=== PATIENT | male | born 1930 | race Caucasian/White ===

== ENCOUNTER 2019-03-12 07:32 | Inpatient (IN) | payer MEDICARE, OTHER ==
[2019-03-12] MEDS ORDERED: Furosemide 20 MG/2 ML VIAL ONE (08:43)
[2019-03-12 08:56] LABS: #Basophils 0.1 thou/uL (0.0-0.2); #Eosinphils 0.1 thou/uL (0.0-0.7); #Lymphocytes 0.7 thou/uL (1.20-3.40); #Monocytes 0.4 thou/uL (0.11-0.59); #Neutrophils 5.6 thou/uL (1.40-6.50); %Basophils 0.8 % (0.0-1.0); %Eosinophils 0.9 % (0.0-10.0); %Lymphocytes 10.9 % (21.0-51.0); %Monocytes 5.2 % (0.0-10.0); %Neutrophils 82.2 % (42.0-75.0); Hemoglobin 9.4 g/dL (14.0-18.0); Mean Corpuscular HGB CONC 31.8 g/dL (32.0-36.0); Mean Corpuscular Hemoglobin 26.2 pg (27.0-31.0); Mean Corpuscular Volume 82.3 fL (78.0-98.0); Mean Platelet Volume 10.4 fL (7.4-10.4); Platelet Count 284 thou/uL (130-400); RBC Distribution Width 15.2 % (11.5-14.5); White Blood Cell (WBC) Count 6.8 thou/uL (4.8-10.8)
[2019-03-12 09:13] LABS: ALT (SGPT) Less than 7 U/L (8-55); AST (SGOT) 11 U/L (5-34); Albumin 2.3 g/dL (3.4-4.8); Alkaline Phosphatase 90 U/L (40-110); Anion Gap 8 mmol/L (10-20); BUN (Urea Nitrogen) 9 mg/dL (8.4-25.7); Bilirubin, Total 0.4 mg/dL (0.2-1.2); CK (CPK) 46 U/L (30-200); Calc. Creatinine Clearance 0 mL/min (70-130); Calcium 8.3 mg/dL (7.8-10.44); Carbon Dioxide 33 mmol/L (23-31); Chloride 101 mmol/L (98-107); Estimated GFR-MDRD Greater than 90; Globulin 2.6 g/dL (2.4-3.5); Glucose 157 mg/dL (83-110); Protein, Total 4.9 g/dL (5.8-8.1); Sodium 139 mmol/L (136-145)
[2019-03-12 09:18] LABS: Potassium 2.7 mmol/L (3.5-5.1)
[2019-03-12] MEDS ORDERED: Potassium Chloride 20 MEQ TAB ONE (09:22)
--- NOTE | 2019-03-12 09:30 | RAD ---
CHEST 1 VIEW: Date: 03/12/19 HISTORY: Dyspnea. COMPARISON: 06/05/07. FINDINGS: There are bilateral layering pleural effusions. No pneumothorax. Moderate vascular calcifications. Cardiac silhouette is not enlarged. There appear to be surgical clips projecting over the expected lo cation of the GE junction. IMPRESSION: 1. Moderate layering pleural effusions with bibasilar atelectasis. 2. No definite evidence for pneumonia. Follow-up 2 views of chest recommended. POS: [facility]
[2019-03-12] MEDS ORDERED: hydrALAZINE 20 MG/ML VIAL ONE (10:08)
[2019-03-12 10:32] LABS: Bilirubin Negative (Negative); Blood, Urine 1+ (Negative); Calcium Oxalate Crystals Rare HPF (None Seen); Clarity Turbid (Clear); Glucose, Urine (Dipstick) Normal (Negative); Leukocyte 500 Leu/uL (Negative); Nitrite 2+ (Negative); Protein, Urine (Dipstick) Negative (Neg-Trace); Squamous Epithelial None Seen HPF (0-3); Urobilinogen Normal mg/dL (Less than 2); WBC/HPF 21-50 HPF (0-3)
[2019-03-12 10:34] LABS: Bacteria/HPF 2+ HPF (None Seen)
[2019-03-12] MEDS ORDERED: cefTRIAXone\\ROCEPHIN 2 GM in Sodium Chloride 0.9% 100 ML IVPB SCH (11:30)
[2019-03-12 13:17] LABS: Troponin I Less than 0.010 ng/mL (< 0.028)
[2019-03-12] MEDS ORDERED: Acetaminophen 325 MG TAB PO PRN (14:14)
[2019-03-12] MEDS ORDERED: Ondansetron PF 4 MG/2 ML Vial IVP PRN (14:14)
[2019-03-12] MEDS ORDERED: Guaifenesin DM 100-10/5 ML UDCUP PO PRN (14:14)
[2019-03-12] MEDS ORDERED: Calcium Carbonate 500 MG ChewTAB PO PRN (14:14)
[2019-03-12] MEDS ORDERED: Senokot S 8.6-50 MG TAB PO PRN (14:14)
[2019-03-12] MEDS ORDERED: Bisacodyl 10 MG SUPP PR PRN (14:14)
[2019-03-12] MEDS ORDERED: HYDROcodone/Acetaminophen 5/325 mg Tablet PO PRN (14:14)
--- NOTE | 2019-03-12 14:55 | HP ---
PRIMARY CARE PHYSICIAN: Julien Irvin MD REASON FOR ADMISSION: Anasarca, hypokalemia, failure to thrive, severe protein malnutrition, sacral decubitus. HISTORY OF PRESENTING ILLNESS: The patient was brought to emergency room as he was developing edema all over. This has been ongoing for the last 2 weeks. The patient lives alone, but his son comes and checks on him every day. He used to sleep in a recliner for nearly 2 years or so. The son got him an hospital bed and has been sleeping on it for last 2 weeks. He had severe edema in both lower extremities, which got resolved with the patient was placed in hospital bed. He also has developed sacral decubitus due to sitting on his recliner. They have 2 areas of ulcerations in the sacral area, one is healing, the other one is yet to heal. The patient has been bedbound after he fell in December, but was able to assist in transfers and mobilized himself to bathroom and back, but from last 2 weeks, he is deconditioned very badly and has been bedbound now. He apparently had Home Health for 1 week, and he has been off it for the last 2 weeks now. The family did not like their services. Son usually gives him a glass of milk, juice, a protein drink along with something from [employer] for the morning. In the evenings, the patient has apple juice, a banana, but does not eat much of solid food or meat. No complaints of chest pain or palpitation. No complaints of fever. He has been incontinent of urine after having had radiation done for his prostate cancer. No fever. PAST MEDICAL AND SURGICAL HISTORY: Hypertension, history of prostate cancer with 43 radiation treatments, peptic ulcer disease with likely rupture with surgery x2, urinary incontinence, right lower extremity multiple surgeries for fractures. CURRENT MEDICATIONS: Metoprolol extended release 25 mg daily, Lupron p.r.n. for his prostate cancer. ALLERGIES: ALLERGIC TO PENICILLIN. PERSONAL HISTORY: Quit chewing tobacco more than 20 years ago. He has not been drinking for the last 3 months now. Does not abuse drugs. FAMILY HISTORY: The patient is an 88-year-old and he is not oriented. Cannot obtain accurate family history. REVIEW OF SYSTEMS: Cannot be obtained as the patient is not oriented. CODE STATUS: Do not attempt to resuscitate. This was discussed with Mr. Sampson Victoria, the patient's son and power of assistant county attorney. PHYSICAL EXAMINATION: GENERAL: The patient is an 88-year-old male, who is currently not in any acute distress. VITAL SIGNS: Blood pressure 164/94, pulse 80 per minute, respiratory rate 18 per minute, temperature 98 degrees Fahrenheit, saturating 98% on room air. NECK: Supple. No elevated JVD. HEENT: Eyes; extraocular muscles intact. Pupils reacting to light. Oral cavity, mucous membranes are moist. No exudates or congestion. CARDIOVASCULAR: S1, S2 heard. Regular rhythm. RESPIRATORY: Air entry 1+ bilateral. Scattered rhonchi plus. No wheezes. ABDOMEN: Soft. Bowel sounds heard. No tenderness, rigidity, or guarding. The patient has edema over the torso, scrotum, and upper thighs. EXTREMITIES: 1+ peripheral edema. No calf tenderness. VASCULAR: Peripheral pulses 1+ bilateral, no ischemic ulcerations or gangrene. CENTRAL NERVOUS SYSTEM: No gross focal deficits noted. The patient is not fully oriented, but responds to verbal questions. PSYCHIATRIC: No obvious hallucinations or delusions. LABORATORY DATA: White count of 6.8, H and H of 9 and 29, platelet count is 284 , MCV is 82 with 82% neutrophils. Potassium 2.7, serum bicarb 33, BUN 9, creatinine 0.6, serum glucose 157, magnesium is 2. Liver enzymes within normal limits. Troponin x2 negative. BNP is 239. Albumin is 2.3, total protein is 4.9, globulin is 2.6. UA shows signs of UTI. IMAGING STUDIES: Chest x-ray done shows bilateral pleural effusions. No acute infiltrate as such. EKG done shows sinus rhythm at 76 beats per minute. CLINICAL IMPRESSION AND PLAN: The patient will be admitted to medical floor for severe deconditioning, failure to thrive, urinary tract infection, anasarca, severe protein malnutrition, poor oral intake. He has gotten 40 mg IV Lasix in the ER. We will place him on oral Lasix. He will also be on Levaquin for UTI. We will obtain Wound Care consultation for the decubitus, Dietary consultation as well, PT/OT evaluations and Case Management consultation. We will also obtain echo with 2D Doppler for LV function, stool studies in view of diarrhea which is 3 episodes. Son says the patient is essentially incontinent, and by the time, he reaches bathroom, stool will be on the floor. We will also continue his Lopressor 25 mg twice daily. We will obtain iron studies. Keep both his upper extremities, especially elbow and forearm over 2 pillows to reduce edema. Case Management consultation for placement likely to a swing bed. The son would eventually like to take him home, if he is able to assist him with transfers and take a few steps. They prefer ultimately going home from swing bed, if possible. Job ID: [id number] MTDD
[2019-03-12 16:43] VITALS: BMI 21.8
[2019-03-12] MEDS: Ferrous Sulfate 325 MG TAB PO SCH (21:04)
[2019-03-12] MEDS: Metoprolol Tartrate 25 MG TAB PO SCH (21:04)
[2019-03-12] MEDS: Famotidine 20 MG TAB PO SCH (21:04)
[2019-03-13 05:35] LABS: #Eosinphils 0.1 thou/uL (0.0-0.7); #Monocytes 0.5 thou/uL (0.11-0.59); #Neutrophils 4.3 thou/uL (1.40-6.50); %Basophils 0.2 % (0.0-1.0); %Eosinophils 1.4 % (0.0-10.0); %Lymphocytes 16.7 % (21.0-51.0); %Neutrophils 72.8 % (42.0-75.0); Mean Corpuscular HGB CONC 30.9 g/dL (32.0-36.0); Mean Corpuscular Hemoglobin 25.9 pg (27.0-31.0); Mean Corpuscular Volume 83.7 fL (78.0-98.0); Mean Platelet Volume 10.2 fL (7.4-10.4); Platelet Count 309 thou/uL (130-400); RBC Distribution Width 15.6 % (11.5-14.5); Red Blood Cell (RBC) Count 3.85 mill/uL (4.70-6.10); White Blood Cell (WBC) Count 5.9 thou/uL (4.8-10.8)
[2019-03-13 05:36] LABS: Anion Gap 10 mmol/L (10-20); BUN (Urea Nitrogen) 11 mg/dL (8.4-25.7); Calc. Creatinine Clearance 85 mL/min (70-130); Calcium 8.4 mg/dL (7.8-10.44); Carbon Dioxide 33 mmol/L (23-31); Chloride 99 mmol/L (98-107); Estimated GFR-MDRD Greater than 90; Glucose 134 mg/dL (83-110); Potassium 3.1 mmol/L (3.5-5.1); Sodium 139 mmol/L (136-145)
[2019-03-13] MEDS ORDERED: FLU VACC TS2019-20(65YR UP)/PF 180 MCG/0.5 ML SYRINGE IM ONE (09:00)
[2019-03-13] MEDS ORDERED: Furosemide 20 MG TAB PO SCH (09:00)
[2019-03-13] MEDS ORDERED: Prevnar 13-Val Conj/PF 0.5 ML SYRINGE IM ONE (09:00)
[2019-03-13] MEDS: Famotidine 20 MG TAB PO SCH ×2 (09:08→20:50)
[2019-03-13] MEDS: Enoxaparin Sodium 40 MG/0.4 ML SYRINGE SC SCH (09:09)
[2019-03-13] MEDS: Metoprolol Tartrate 25 MG TAB PO SCH ×2 (09:09→20:50)
[2019-03-13] MEDS: Ferrous Sulfate 325 MG TAB PO SCH ×2 (09:09→20:50)
--- NOTE | 2019-03-13 12:30 | PDOC.HOSPP ---
- Subjective Encounter Date: 03/13/19 Encounter Time: 09:00 Subjective: awake, watching tv and eating breakfast, responds well to verbal stimuli - Objective Vital Signs & Weight: Vital Signs (12 hours) Temp Pulse Resp BP Pulse Ox 03/13/19 08:00 96 03/13/19 04:00 98.3 F 73 20 161/71 H 96 03/13/19 00:41 97.8 F 89 20 161/73 H 97 Weight Weight 160 lb 14.999 oz I&O: 03/12/19 03/13/19 03/14/19 06:59 06:59 06:59 Intake Total 400 300 Output Total 200 Balance 200 300 Result Diagrams: 03/13/19 05:04 03/13/19 05:04 Hospitalist ROS - Medication Medications: Active Medications Generic Name Dose Route Start Last Admin Trade Name Freq PRN Reason Stop Dose Admin Enoxaparin Sodium 40 mg 03/13/19 09:00 03/13/19 09:09 Lovenox SC 40 mg 0900 ALEXIS Administration Famotidine 20 mg 03/12/19 21:00 03/13/19 09:08 Pepcid PO 20 mg BID ALEXIS Administration Ferrous Sulfate 325 mg 03/12/19 21:00 03/13/19 09:09 Feosol PO 325 mg BID ALEXIS Administration Levofloxacin 500 mg 03/13/19 06:00 03/13/19 05:27 Levaquin PO 500 mg 0600 ALEXIS Administration Metoprolol Tartrate 25 mg 03/12/19 21:00 03/13/19 09:09 Lopressor PO 25 mg BID ALEXIS Administration - Exam General Appearance: awake alert Eye: PERRL, anicteric sclera ENT: no oropharyngeal lesions, moist mucosa Neck: supple, no JVD Heart: RRR, no murmur Respiratory: no wheezes, no rales Gastrointestinal: soft, non-tender, non-distended, normal bowel sounds Extremities - other findings: dependent edema over elbows, post thighs/lower back Neurological: cranial nerve grossly intact, no focal deficits Hosp A/P (1) FTT (failure to thrive) in adult Status: Acute (2) Anasarca Code(s): R60.1 - GENERALIZED EDEMA Status: Acute (3) Severe protein-calorie malnutrition Code(s): E43 - UNSPECIFIED SEVERE PROTEIN-CALORIE MALNUTRITION Status: Acute (4) Physical deconditioning Code(s): R53.81 - OTHER MALAISE Status: Acute (5) Hypertension Code(s): I10 - ESSENTIAL (PRIMARY) HYPERTENSION Status: Chronic Qualifiers: Hypertension type: essential hypertension Qualified Code(s): I10 - Essential (primary) hypertension (6) PUD (peptic ulcer disease) Code(s): K27.9 - PEPTIC ULC, SITE UNSP, UNSP AC OR CHR, W/O HEMOR OR PERF Status: Chronic - Plan dietary consultation, ensure 1 can tid, encourage po intake discussed with case mgmt regarding swing bed placement PT to mobilize as tolerated Needs his elbows to be elevated above 2 pillows, its weeping from edema freq position changes to prevent worsoning of sacral decub likely stage 2 and also to reduce edema from torso lasix po daily, urine is high colored already hemostable
[2019-03-13] MEDS ORDERED: diphenhydrAMINE 50 MG/ML VIAL IVP SCH (20:30)
[2019-03-13] MEDS ORDERED: Lorazepam 2 MG/ML VIAL SLOW IVP SCH (21:30)
[2019-03-14 07:41] LABS: ALT (SGPT) 9 U/L (8-55); AST (SGOT) 12 U/L (5-34); Albumin 2.7 g/dL (3.4-4.8); Alkaline Phosphatase 106 U/L (40-110); Anion Gap 11 mmol/L (10-20); BUN (Urea Nitrogen) 8 mg/dL (8.4-25.7); Bilirubin, Total 0.4 mg/dL (0.2-1.2); Calc. Creatinine Clearance 93 mL/min (70-130); Calcium 8.5 mg/dL (7.8-10.44); Carbon Dioxide 36 mmol/L (23-31); Chloride 95 mmol/L (98-107); Estimated GFR-MDRD Greater than 90; Globulin 2.7 g/dL (2.4-3.5); Glucose 122 mg/dL (83-110); Protein, Total 5.4 g/dL (5.8-8.1); Sodium 139 mmol/L (136-145)
[2019-03-14 07:45] LABS: Potassium 2.8 mmol/L (3.5-5.1)
[2019-03-14] MEDS: Famotidine 20 MG TAB PO SCH ×2 (08:53→20:21)
[2019-03-14] MEDS: Metoprolol Tartrate 25 MG TAB PO SCH ×2 (08:53→20:22)
[2019-03-14] MEDS: Ferrous Sulfate 325 MG TAB PO SCH ×2 (08:54→20:22)
[2019-03-14] MEDS ORDERED: Furosemide 40 MG TAB PO SCH (09:00)
[2019-03-14] MEDS: Enoxaparin Sodium 40 MG/0.4 ML SYRINGE SC SCH (09:02)
--- NOTE | 2019-03-14 13:36 | PDOC.HOSPP ---
- Subjective Encounter Date: 03/14/19 Encounter Time: 08:00 Subjective: awakens easily to touch, not in distress - Objective Vital Signs & Weight: Vital Signs (12 hours) Temp Pulse Resp BP Pulse Ox 03/14/19 11:00 97.9 F 76 22 H 162/70 H 98 03/14/19 08:00 98.4 F 117 H 18 182/65 H 95 Weight Admit Weight 160 lb Weight 160 lb 14.999 oz I&O: 03/13/19 03/14/19 03/15/19 06:59 06:59 06:59 Intake Total 400 640 Output Total 200 Balance 200 640 Result Diagrams: 03/13/19 05:04 03/14/19 07:17 Hospitalist ROS - Medication Medications: Active Medications Generic Name Dose Route Start Last Admin Trade Name Freq PRN Reason Stop Dose Admin Enoxaparin Sodium 40 mg 03/13/19 09:00 03/14/19 09:02 Lovenox SC 40 mg 0900 ALEXIS Administration Famotidine 20 mg 03/12/19 21:00 03/14/19 08:53 Pepcid PO 20 mg BID ALEXIS Administration Ferrous Sulfate 325 mg 03/12/19 21:00 03/14/19 08:54 Feosol PO 325 mg BID ALEXIS Administration Furosemide 40 mg 03/14/19 09:00 03/14/19 08:54 Lasix PO 40 mg DAILY ALEXIS Administration Levofloxacin 500 mg 03/13/19 06:00 03/14/19 04:36 Levaquin PO Not Given 0600 ALEXIS Metoprolol Tartrate 25 mg 03/12/19 21:00 03/14/19 08:53 Lopressor PO 25 mg BID ALEXIS Administration Potassium Chloride 40 meq 03/14/19 08:30 03/14/19 08:51 Klor-Con PO 03/15/19 08:31 40 meq Q6H ALEXIS Administration - Exam Eye: PERRL, anicteric sclera ENT: no oropharyngeal lesions, dry oral mucosa Neck: supple, no JVD Heart: RRR, no murmur Respiratory: no wheezes, no rales Gastrointestinal: soft, non-tender, non-distended, normal bowel sounds Gastrointestinal - other findings: lower back area edema+ Extremities - other findings: elbow edema is receding Neurological: cranial nerve grossly intact, no focal deficits Hosp A/P (1) FTT (failure to thrive) in adult Status: Acute (2) Anasarca Code(s): R60.1 - GENERALIZED EDEMA Status: Acute (3) Severe protein-calorie malnutrition Code(s): E43 - UNSPECIFIED SEVERE PROTEIN-CALORIE MALNUTRITION Status: Acute (4) Physical deconditioning Code(s): R53.81 - OTHER MALAISE Status: Acute (5) Hypertension Code(s): I10 - ESSENTIAL (PRIMARY) HYPERTENSION Status: Chronic Qualifiers: Hypertension type: essential hypertension Qualified Code(s): I10 - Essential (primary) hypertension (6) PUD (peptic ulcer disease) Code(s): K27.9 - PEPTIC ULC, SITE UNSP, UNSP AC OR CHR, W/O HEMOR OR PERF Status: Chronic - Plan elbow and LE edema are receding got a dose of benadryl and ativan last night for agitation ensure 1 can tid, encourage po intake will need swing bed placement PT to mobilize as tolerated Continue elevating elbows over 2 pillows, chantel hose to LE to prevent edema from coming back. freq position changes to prevent worsoning of sacral decub likely stage 2 and also to reduce edema from torso lasix po daily, replace K+. hemostable Donot combine sedatives and benadryl, may give low dose xanax 0.5mg HS prn.
[2019-03-14] MEDS ORDERED: Haloperidol Lactate 5 MG/ML VIAL IM PRN (18:15)
[2019-03-15 05:38] LABS: Anion Gap 11 mmol/L (10-20); BUN (Urea Nitrogen) 8 mg/dL (8.4-25.7); Calc. Creatinine Clearance 85 mL/min (70-130); Calcium 8.2 mg/dL (7.8-10.44); Carbon Dioxide 33 mmol/L (23-31); Chloride 98 mmol/L (98-107); Estimated GFR-MDRD Greater than 90; Glucose 107 mg/dL (83-110); Potassium 3.4 mmol/L (3.5-5.1); Sodium 139 mmol/L (136-145)
[2019-03-15 08:11] VITALS: BP 169/78; TEMP 97.8
--- NOTE | 2019-03-15 19:06 | DIS ---
DATE OF ADMISSION: 03/12/2019 DATE OF DISCHARGE: 03/15/2019 DISCHARGE DISPOSITION: Home. PRIMARY DISCHARGE DIAGNOSES: Anasarca with dependent edema due to poor functional status, severe physical deconditioning and bedbound, severe protein-calorie malnutrition, failure to thrive, hypertension, history of peptic ulcer disease. PROCEDURES DONE DURING HOSPITALIZATION: Echo with 2D Doppler showed EF of 50% to 55%, [id number] tricuspid regurgitation. Chest x-ray done on the day of admission showed no acute infiltrate and had bilateral pleural effusions. Urine culture grew Citrobacter freundii sensitive to quinolones. Blood cultures x2, no growth. Stool for C diff, Campylobacter, and Shiga toxins were negative. H and H of 10 and 32, platelet count 309, MCV 83 with 72% neutrophils. BUN 8, creatinine 0.6, albumin is 2.3, total protein 4.9. DISCHARGE MEDICATIONS: 1. Levaquin 500 mg p.o. daily for another 4 days. 2. Lasix 40 mg daily. 3. K-Dur 20 mEq p.o. on alternate days. 4. Toprol-XL 25 mg p.o. daily. ALLERGIES: ALLERGIC TO PENICILLIN. DISCHARGE PLAN: The patient to follow up with Dr. Julien Irvin in 1 week. BRIEF COURSE DURING HOSPITALIZATION: The patient initially got admitted on the after his son brought him to the emergency room for edema all over. This edema was in both lower extremities and around the elbow area. He has also had edema of the torso on the posterior aspect. In essence, the patient had severe dependent edema with very low albumin and failure to thrive. He also was incidentally found to have had urinary tract infection and was treated for the same. He was gently diuresed during his stay. The patient had elevation of his lower extremities and elbows to reduce edema. The patient was to go to swing bed, but son decided to take him home and arrange for visiting angels. The patient did not like to go to the [facility] in any case. He has remained hemodynamically stable and will be shortly discharged home. Please note, I have seen and examined the patient on the day of discharge. Job ID: [id number] MTDD
== END 2019-03-15 08:58 | disposition home or self-care (01) | DRG 640 ==
LOC: ERS 07:32 → T4-B 14:40
PROVIDERS: ADMIT Internal Medicine; ATTEND Internal Medicine
DX: R62.7 Adult failure to thrive (principal); E43 Unspecified severe protein-calorie malnutrition; N39.0 Urinary tract infection, site not specified; E87.6 Hypokalemia; R60.1 Generalized edema; R53.81 Other malaise; C61 Malignant neoplasm of prostate; I10 Essential (primary) hypertension; Z66 Do not resuscitate; K27.9 Peptic ulcer, site unspecified, unspecified as acute or chronic, without hemorrhage or perforation; Z79.899 Other long term (current) drug therapy; Z88.0 Allergy status to penicillin; Z87.891 Personal history of nicotine dependence; Z68.21 Body mass index [BMI] 21.0-21.9, adult; L89.152 Pressure ulcer of sacral region, stage 2
CPT/HCPCS: 36415; 71045; 80048; 80053; 81003; 81015; 82550; 83735; 83880; 84484; 85025; 87040; 87045; 87046; 87077; 87086; 87186; 87324; 87427; 87449; 93005; 93306; 96365; 96375; J0360; J0696; J1200; J1650; J1940; J2060; J3490

== ENCOUNTER 2019-04-18 06:51 | Inpatient (IN) | payer MEDICARE, OTHER ==
--- NOTE | 2019-04-18 07:59 | CT ---
CT BRAIN NONCONTRAST: DATE: 04/18/2019 HISTORY: 88-year-old male with altered mental status: Increasing confusion. Multiple falls resulting in scalp lacerations. Head trauma. FINDINGS: There is no evidence of acute intra-axial or extra-axial hemorrhage. There is no midline shift or any other mass effect. There is no extra-axial fluid collection. There is no evidence of obstructive hydrocephalus. Calvarium is intact. There is diffuse brain parenchymal volume loss. There are low att enuation areas in the white matter. These are nonspecific, but in a patient of this age, they are probably chronic ischemic white matter changes due to microvascular atherosclerosis. IMPRESSION: 1) No acute intracranial findings. 2) involutional changes and chronic ischemic white matter changes.
--- NOTE | 2019-04-18 08:11 | RAD ---
Radiograph pelvis one view: DATE: 04/18/2019 HISTORY: 88-year-old male status post acute pelvic trauma from fall. COMPARISON: None available FINDINGS: No grossly displaced fracture is identified. The pelvic ring is intact. The sensitivity for the detec tion of acute nondisplaced and mildly displaced fractures is decreased because of the osteopenia and overlying bowel gas, as well as the fact that the hips are slightly flexed. If symptoms do not im prove in the next several days, consider noncontrast MRI of the pelvis. IMPRESSION: No fracture identified.
--- NOTE | 2019-04-18 08:13 | RAD ---
Chest AP view INDICATION: Fall with chest pain COMPARISON: March 12, 2019 FINDINGS: Lungs:Chronic lung changes are stable Cardiac silhouette:Mild cardiomegaly is present. There are vascular consultation involving the aortic arch Pulmonary vasculature:Normal Pleural spaces:No pleural effusion or pneumothorax is demonstrated. Upper abdomen:No abnormality seen. Osseous structures: No acute osseous abnormality. Additional findings:None. IMPRESSION: No acute cardiopulmonary abnormality.
[2019-04-18 08:19] LABS: ALT (SGPT) 19 U/L (8-55); AST (SGOT) 25 U/L (5-34); Alkaline Phosphatase 114 U/L (40-110); Anion Gap 11 mmol/L (10-20); BUN (Urea Nitrogen) 14 mg/dL (8.4-25.7); Bilirubin, Total 0.5 mg/dL (0.2-1.2); CK (CPK) 305 U/L (30-200); Calc. Creatinine Clearance 0 mL/min (70-130); Calcium 8.4 mg/dL (7.8-10.44); Carbon Dioxide 28 mmol/L (23-31); Chloride 101 mmol/L (98-107); Estimated GFR-MDRD Greater than 90; Globulin 2.5 g/dL (2.4-3.5); Glucose 166 mg/dL (83-110); Potassium 3.4 mmol/L (3.5-5.1); Protein, Total 5.5 g/dL (5.8-8.1); Sodium 137 mmol/L (136-145)
[2019-04-18 09:56] LABS: Bacteria/HPF 1+ HPF (None Seen); Bilirubin Negative (Negative); Blood, Urine Negative (Negative); Clarity Extra Turbid (Clear); Glucose, Urine (Dipstick) Normal (Negative); Leukocyte 250 Leu/uL (Negative); Nitrite Negative (Negative); Protein, Urine (Dipstick) 20 mg/dL (Neg-Trace); RBC/HPF None Seen HPF (0-3); Squamous Epithelial None Seen HPF (0-3); Urobilinogen Normal mg/dL (Less than 2); WBC/HPF 21-50 HPF (0-3)
[2019-04-18] MEDS ORDERED: Bacitracin 1 PK ONE (09:57)
[2019-04-18 10:40] LABS: #Monocytes 0.4 thou/uL (0.11-0.59); #Neutrophils 4.7 thou/uL (1.40-6.50); %Basophils 0.6 % (0.0-1.0); %Eosinophils 0.1 % (0.0-10.0); %Monocytes 6.7 % (0.0-10.0); %Neutrophils 76.5 % (42.0-75.0); Hemoglobin 9.7 g/dL (14.0-18.0); Mean Corpuscular HGB CONC 31.9 g/dL (32.0-36.0); Mean Corpuscular Hemoglobin 26.1 pg (27.0-31.0); Mean Corpuscular Volume 81.7 fL (78.0-98.0); Mean Platelet Volume 10.9 fL (7.4-10.4); Platelet Count 272 thou/uL (130-400); RBC Distribution Width 17.5 % (11.5-14.5); Red Blood Cell (RBC) Count 3.73 mill/uL (4.70-6.10); White Blood Cell (WBC) Count 6.2 thou/uL (4.8-10.8)
[2019-04-18] MEDS ORDERED: Acetaminophen 500 MG TAB PO PRN (18:09)
[2019-04-18] MEDS ORDERED: Ondansetron ODT 4 MG TAB PO PRN (18:09)
[2019-04-18] MEDS ORDERED: Ondansetron PF 4 MG/2 ML Vial IVP PRN (18:09)
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
[2019-04-18] MEDS: Sodium Chloride 0.9% 1,000 ML IV SCH (21:12)
[2019-04-18] MEDS: cefTRIAXone\\ROCEPHIN 2 GM in Sodium Chloride 0.9% 100 ML IVPB SCH (22:03)
[2019-04-18] MEDS: Famotidine 20 MG TAB PO SCH (23:01)
[2019-04-19 00:32] VITALS: BMI 16.4
[2019-04-19 06:04] LABS: Band 3 % (5-11); Eosinophils 1 % (0-10); Hemoglobin 9.9 g/dL (14.0-18.0); Hypochromia SLIGHT = 6-15 cells (100X) (0-5/hpf); Lymphocytes 14 % (21-51); MDiff Complete? YES; Mean Corpuscular HGB CONC 31.8 g/dL (32.0-36.0); Mean Corpuscular Hemoglobin 25.8 pg (27.0-31.0); Mean Corpuscular Volume 81.1 fL (78.0-98.0); Mean Platelet Volume 11.4 fL (7.4-10.4); Monocytes 1 % (0-10); Neutrophil 81 % (42-75); Platelet Count 264 thou/uL (130-400); Platelet Morphology Comment Appears Adequate; RBC Distribution Width 17.3 % (11.5-14.5); Red Blood Cell (RBC) Count 3.82 mill/uL (4.70-6.10)
[2019-04-19 06:14] LABS: Anion Gap 12 mmol/L (10-20); BUN (Urea Nitrogen) 8 mg/dL (8.4-25.7); Calc. Creatinine Clearance 71 mL/min (70-130); Carbon Dioxide 28 mmol/L (23-31); Chloride 100 mmol/L (98-107); Estimated GFR-MDRD Greater than 90; Sodium 137 mmol/L (136-145)
[2019-04-19 06:15] LABS: ALT (SGPT) 17 U/L (8-55); AST (SGOT) 17 U/L (5-34); Albumin 2.9 g/dL (3.4-4.8); Alkaline Phosphatase 111 U/L (40-110); Bilirubin, Total 0.4 mg/dL (0.2-1.2); Calcium 8.3 mg/dL (7.8-10.44); Globulin 2.8 g/dL (2.4-3.5); Glucose 92 mg/dL (83-110); Protein, Total 5.7 g/dL (5.8-8.1)
[2019-04-19 06:33] LABS: Free T4 (Free Thyroxine) 1.03 ng/dL (0.70-1.48); Thyroid Stimulating Hormone 0.0064 uIU/mL (0.35-4.94)
[2019-04-19] MEDS: Sodium Chloride 0.9% 1,000 ML IV SCH ×3 (07:23→23:51)
[2019-04-19] MEDS: Famotidine 20 MG TAB PO SCH ×3 (08:03→23:02)
--- NOTE | 2019-04-19 19:41 | PDOC.HOSPP ---
- Subjective Encounter Date: 04/19/19 Encounter Time: 15:15 Subjective: f/u for AMS, delirium, deconditioning and UTI. Receiving IVF's and Rocephin currently. No changes reported per nursing. - Objective Vital Signs & Weight: Vital Signs (12 hours) Temp Pulse Pulse Resp BP BP Pulse Ox 04/19/19 16:35 97.6 F 88 18 163/81 H 95 04/19/19 12:05 98.1 F 85 18 151/74 H 96 04/19/19 09:35 85 151/74 H 04/19/19 08:00 95 04/19/19 07:43 98.1 F 88 16 168/82 H 95 Pulse Ox 04/19/19 16:35 04/19/19 12:05 04/19/19 09:35 96 04/19/19 08:00 04/19/19 07:43 Weight Admit Weight 131 lb 9.6 oz Weight 131 lb 9.6 oz I&O: 04/18/19 04/19/19 04/20/19 06:59 06:59 06:59 Intake Total 1110 Balance 1110 Result Diagrams: 04/19/19 05:26 04/19/19 05:26 Additional Labs: Laboratory Tests 04/18/19 04/18/19 04/18/19 07:32 07:32 10:26 Hgb 9.7 L Neutrophils % 76.5 H Neutrophils % (Manual) Potassium 3.4 L Alkaline Phosphatase 114 H Creatine Kinase 305 H Free T4 Free T3 TSH 3rd Generation 0.0088 L 04/19/19 04/19/19 04/19/19 05:26 05:26 05:26 Hgb Neutrophils % Neutrophils % (Manual) 81 H Potassium Alkaline Phosphatase 111 H Creatine Kinase Free T4 1.03 Free T3 2.64 TSH 3rd Generation 0.0064 L Hospitalist ROS - Medication Medications: Active Medications Generic Name Dose Route Start Last Admin Trade Name Freq PRN Reason Stop Dose Admin Famotidine 20 mg 04/18/19 21:00 04/19/19 09:24 Pepcid PO Not Given BID ALEXIS Ceftriaxone Sodium 2 gm/ 100 mls @ 200 mls/hr 04/18/19 20:00 04/18/19 22:03 Sodium Chloride IVPB 100 mls Q24HR@2000 ALEXIS Administration Sodium Chloride 1,000 mls @ 75 mls/hr 04/18/19 18:09 04/19/19 11:04 Normal Saline 0.9% IV 1,000 mls .[id number] ALEXIS Administration Ondansetron HCl 4 mg 04/18/19 18:09 04/19/19 06:41 Zofran IVP 4 mg Q6H PRN Administration Nausea/Vomiting Potassium Chloride 40 meq 04/19/19 17:00 04/19/19 17:10 Klor-Con PO 40 meq BID-WM ALEXIS Administration - Exam General Appearance: ill appearing General - other findings: staring at the ceiling, does not track consistently Eye: PERRL, anicteric sclera ENT: no oropharyngeal lesions ENT - other findings: edentulous Neck: supple, symmetric, no JVD, no thyromegaly Heart: RRR, no gallops, no rubs, normal peripheral pulses Respiratory: CTAB, no wheezes, no rales, no ronchi Gastrointestinal: soft, non-tender, non-distended, normal bowel sounds, no palpable masses Extremities: no cyanosis, no edema Skin: normal turgor Skin - other findings: abrasions on feet/shins Neurological: no new deficit Musculoskeletal: generalized weakness, diffuse muscle atrophy Psychiatric: oriented to person, somnolent, lethargic Hosp A/P (1) Acute metabolic encephalopathy Code(s): G93.41 - METABOLIC ENCEPHALOPATHY Status: Acute Plan: Persistent, ? component of worsening dementia, supportive mgmt, IVF's, nutritional support (2) UTI (urinary tract infection) Status: Acute Plan: Suspected, Ucx not performed, continue Rocephin daily (3) FTT (failure to thrive) in adult Status: Chronic Plan: PT/OT/PRESIDENT AND CHIEF EXECUTIVE OFFICER evaluation, likely end-stage process (4) Physical deconditioning Code(s): R53.81 - OTHER MALAISE Status: Chronic Plan: PT/OT for functional assessment, fall risk precautions (5) Rhabdomyolysis Code(s): M62.82 - RHABDOMYOLYSIS Status: Acute Plan: Mild, continue IVF's, repeat CPK in am (6) Severe protein-calorie malnutrition Code(s): E43 - UNSPECIFIED SEVERE PROTEIN-CALORIE MALNUTRITION Status: Chronic Plan: Continue regular diet, Ensure Enlive, Might Shakes (7) Dementia Code(s): F03.90 - UNSPECIFIED DEMENTIA WITHOUT BEHAVIORAL DISTURBANCE Status: Chronic Plan: Likely Alzheimer's type, supportive, sitter - Plan continue antibiotics, PT/OT, perinatal social worker, speech therapy, respiratory therapy, DVT proph w/SCDs Stable currently Continue IVF's Continue Rocephin PT/OT evaluation CM for SNF/NH options AM lab: BMP, CPK
[2019-04-19] MEDS: cefTRIAXone\\ROCEPHIN 2 GM in Sodium Chloride 0.9% 100 ML IVPB SCH (21:05)
[2019-04-20] MEDS: Sodium Chloride 0.9% 1,000 ML IV SCH ×2 (00:48→15:08)
[2019-04-20] MEDS: hydrALAZINE 20 MG/ML VIAL SLOW IVP PRN ×2 (01:26→23:47)
[2019-04-20 06:11] LABS: Anion Gap 12 mmol/L (10-20); BUN (Urea Nitrogen) 7 mg/dL (8.4-25.7); CK (CPK) 54 U/L (30-200); Calc. Creatinine Clearance 73 mL/min (70-130); Calcium 8.5 mg/dL (7.8-10.44); Carbon Dioxide 28 mmol/L (23-31); Chloride 102 mmol/L (98-107); Estimated GFR-MDRD Greater than 90; Glucose 75 mg/dL (83-110); Sodium 139 mmol/L (136-145)
[2019-04-20] MEDS: Famotidine 20 MG TAB PO SCH ×2 (11:51→21:03)
[2019-04-20] MEDS ORDERED: Potassium Chloride 20 MEQ TAB PO SCH (16:00)
--- NOTE | 2019-04-20 19:59 | PDOC.HOSPP ---
- Subjective Encounter Date: 04/20/19 Encounter Time: 13:00 Subjective: patient seen on f/u for ams uti and malnutrition, patient is not oriented to person or place but follow commands and seems to be in good spirits - Objective Vital Signs & Weight: Vital Signs (12 hours) Temp Pulse Resp BP Pulse Ox 04/20/19 19:47 97.6 F 70 20 183/80 H 98 Weight Admit Weight 131 lb 9.6 oz Weight 131 lb 9.6 oz I&O: 04/19/19 04/20/19 04/21/19 06:59 06:59 06:59 Intake Total 1110 Balance 1110 Result Diagrams: 04/19/19 05:26 04/20/19 05:18 Hospitalist ROS - Review of Systems ROS unobtainable: due to mental status - Medication Medications: Active Medications Generic Name Dose Route Start Last Admin Trade Name Freq PRN Reason Stop Dose Admin Famotidine 20 mg 04/18/19 21:00 04/20/19 11:51 Pepcid PO 20 mg BID ALEXIS Administration Hydralazine HCl 10 mg 04/18/19 18:09 04/20/19 01:26 Apresoline SLOW IVP 10 mg Q4H PRN Administration SBP > 180 and HR < 70 Ceftriaxone Sodium 2 gm/ 100 mls @ 200 mls/hr 04/18/19 20:00 04/19/19 21:05 Sodium Chloride IVPB 100 mls Q24HR@2000 ALEXIS Administration Sodium Chloride 1,000 mls @ 75 mls/hr 04/18/19 18:09 04/20/19 15:08 Normal Saline 0.9% IV Not Given .[id number] [facility] Ondansetron HCl 4 mg 04/18/19 18:09 04/19/19 06:41 Zofran IVP 4 mg Q6H PRN Administration Nausea/Vomiting Potassium Chloride 40 meq 04/19/19 17:00 04/20/19 17:38 Klor-Con PO Not Given BID-[facility] - Exam General Appearance: awake alert Eye: PERRL, anicteric sclera ENT: normocephalic atraumatic, no oropharyngeal lesions Neck: supple, symmetric, no JVD Heart: RRR, no murmur, no gallops, no rubs Respiratory: CTAB, no wheezes, no rales, no ronchi Gastrointestinal: soft, non-tender, non-distended, normal bowel sounds Extremities: no cyanosis, no clubbing Skin: normal turgor, no lesions Neurological: cranial nerve grossly intact Musculoskeletal: normal tone Psychiatric: not oriented Psychiatric - other findings: alert Hosp A/P (1) Acute metabolic encephalopathy Code(s): G93.41 - METABOLIC ENCEPHALOPATHY Status: Acute (2) UTI (urinary tract infection) Status: Acute (3) Dementia Code(s): F03.90 - UNSPECIFIED DEMENTIA WITHOUT BEHAVIORAL DISTURBANCE Status: Chronic (4) Hypertension Code(s): I10 - ESSENTIAL (PRIMARY) HYPERTENSION Status: Chronic Qualifiers: Hypertension type: essential hypertension Qualified Code(s): I10 - Essential (primary) hypertension (5) PUD (peptic ulcer disease) Code(s): K27.9 - PEPTIC ULC, SITE UNSP, UNSP AC OR CHR, W/O HEMOR OR PERF Status: Chronic (6) Physical deconditioning Code(s): R53.81 - OTHER MALAISE Status: Chronic (7) Severe protein-calorie malnutrition Code(s): E43 - UNSPECIFIED SEVERE PROTEIN-CALORIE MALNUTRITION Status: Chronic - Plan -cpk at normal values -on rocephin, u/c were not taken pts seems to be doing clinically well - cm for snf placement -continue w pt ot -continue w iv hydration -continue home meds for chronic conditions
[2019-04-20] MEDS: cefTRIAXone\\ROCEPHIN 2 GM in Sodium Chloride 0.9% 100 ML IVPB SCH (21:01)
[2019-04-21] MEDS: Sodium Chloride 0.9% 1,000 ML IV SCH ×3 (05:35→17:39)
[2019-04-21 05:55] LABS: Anion Gap 14 mmol/L (10-20); BUN (Urea Nitrogen) 7 mg/dL (8.4-25.7); Calc. Creatinine Clearance 78 mL/min (70-130); Calcium 8.6 mg/dL (7.8-10.44); Carbon Dioxide 23 mmol/L (23-31); Chloride 104 mmol/L (98-107); Estimated GFR-MDRD Greater than 90; Glucose 142 mg/dL (83-110); Sodium 138 mmol/L (136-145)
[2019-04-21] MEDS: hydrALAZINE 20 MG/ML VIAL SLOW IVP PRN ×2 (05:55→18:03)
[2019-04-21] MEDS: Famotidine 20 MG TAB PO SCH ×2 (08:24→20:09)
--- NOTE | 2019-04-21 13:37 | PDOC.HOSPP ---
- Subjective Encounter Date: 04/21/19 Encounter Time: 13:10 Subjective: f/u for delirium/dementia, malnutrition with persistent agitation, hallucinations per son. Receiving tx for UTI with Rocephin. - Objective Vital Signs & Weight: Vital Signs (12 hours) Temp Pulse Resp BP BP Pulse Ox 04/21/19 11:34 97.7 F 100 17 176/89 H 97 04/21/19 08:22 98 04/21/19 07:27 96 19 162/87 H 98 04/21/19 05:55 103 H 04/21/19 04:00 97.5 F L 103 H 20 189/91 H 93 L Weight Admit Weight 131 lb 9.6 oz Weight 131 lb 9.6 oz I&O: 04/20/19 04/21/19 04/22/19 06:59 06:59 06:59 Intake Total 1110 Balance 1110 Result Diagrams: 04/19/19 05:26 04/21/19 05:26 Additional Labs: Laboratory Tests 04/18/19 04/18/19 04/18/19 07:32 07:32 10:26 Hgb 9.7 L Neutrophils % 76.5 H Neutrophils % (Manual) Potassium 3.4 L Alkaline Phosphatase 114 H Creatine Kinase 305 H Free T4 Free T3 TSH 3rd Generation 0.0088 L 04/19/19 04/19/19 04/19/19 05:26 05:26 05:26 Hgb Neutrophils % Neutrophils % (Manual) 81 H Potassium Alkaline Phosphatase 111 H Creatine Kinase Free T4 1.03 Free T3 2.64 TSH 3rd Generation 0.0064 L Hospitalist ROS - Medication Medications: Active Medications Generic Name Dose Route Start Last Admin Trade Name Freq PRN Reason Stop Dose Admin Famotidine 20 mg 04/18/19 21:00 04/21/19 08:24 Pepcid PO 20 mg BID ALEXIS Administration Hydralazine HCl 10 mg 04/18/19 18:09 04/21/19 05:55 Apresoline SLOW IVP 10 mg Q4H PRN Administration SBP > 180 and HR < 70 Ceftriaxone Sodium 2 gm/ 100 mls @ 200 mls/hr 04/18/19 20:00 04/20/19 21:01 Sodium Chloride IVPB 100 mls Q24HR@2000 ALEXIS Administration Sodium Chloride 1,000 mls @ 75 mls/hr 04/18/19 18:09 04/21/19 08:29 Normal Saline 0.9% IV 1,000 mls .[id number] ALEXIS Administration Ondansetron HCl 4 mg 04/18/19 18:09 04/19/19 06:41 Zofran IVP 4 mg Q6H PRN Administration Nausea/Vomiting - Exam General Appearance: NAD, ill appearing General - other findings: somnolenet, opens eyes briefly Eye: PERRL, anicteric sclera ENT: normocephalic atraumatic, no oropharyngeal lesions Neck: supple, symmetric, no JVD, no thyromegaly Heart: RRR, no gallops, no rubs, normal peripheral pulses Respiratory: CTAB, no wheezes, no rales, no ronchi Gastrointestinal: soft, non-tender, non-distended, normal bowel sounds Extremities: no cyanosis, no clubbing Skin: normal turgor, no lesions Neurological: no new deficit Musculoskeletal: generalized weakness, diffuse muscle atrophy Psychiatric: oriented to person Hosp A/P (1) Acute metabolic encephalopathy Code(s): G93.41 - METABOLIC ENCEPHALOPATHY Status: Acute Plan: Likely multifactorial delirium, trial Ativan 1mg IV q6h, may need additional Haldol or Seroquel (2) UTI (urinary tract infection) Status: Acute Plan: No Ucx available, continue Rocephin (3) FTT (failure to thrive) in adult Status: Chronic Plan: Multifactorial, Ensure Enlive (4) Physical deconditioning Code(s): R53.81 - OTHER MALAISE Status: Chronic (5) Rhabdomyolysis Code(s): M62.82 - RHABDOMYOLYSIS Status: Acute Plan: Resolving (6) Severe protein-calorie malnutrition Code(s): E43 - UNSPECIFIED SEVERE PROTEIN-CALORIE MALNUTRITION Status: Chronic Plan: Regular diet, Ensure Enlive, Mighty Shakes (7) Dementia Code(s): F03.90 - UNSPECIFIED DEMENTIA WITHOUT BEHAVIORAL DISTURBANCE Status: Chronic Plan: Plan for transfer to memory care unit in next 48h - Plan plan discussed w/ family, continue antibiotics, PT/OT, social media job titles, DVT proph w/SCDs Stable currently Saline Lock IVF's Continue Rocephin PT/OT evaluation CM for SNF/NH options Ativan 1mg IV q6h prn agitation KCL 40meq TID
[2019-04-21] MEDS: Lorazepam 2 MG/ML VIAL SLOW IVP SCH ×2 (13:59→20:03)
[2019-04-21] MEDS: cefTRIAXone\\ROCEPHIN 2 GM in Sodium Chloride 0.9% 100 ML IVPB SCH (20:09)
[2019-04-21] MEDS ORDERED: Potassium Chloride 10 MEQ in Premix Bag 1 BAG IVPB SCH (20:45)
[2019-04-21] MEDS ORDERED: Potassium Chloride 30 MEQ in Sodium Chloride 0.9% 250 ML 250 ML IVPB SCH (21:00)
[2019-04-21] MEDS: Famotidine/PF 20 mg/2ml Vial SLOW IVP SCH (21:17)
[2019-04-22] MEDS: Lorazepam 2 MG/ML VIAL SLOW IVP SCH ×4 (01:12→21:06)
[2019-04-22] MEDS: hydrALAZINE 20 MG/ML VIAL SLOW IVP PRN (01:14)
[2019-04-22] MEDS: Sodium Chloride 0.9% 1,000 ML IV SCH ×2 (01:17→14:22)
[2019-04-22] MEDS: Famotidine/PF 20 mg/2ml Vial SLOW IVP SCH ×2 (07:55→21:13)
--- NOTE | 2019-04-22 09:51 | PDOC.HOSPP ---
- Subjective Encounter Date: 04/22/19 Encounter Time: 09:50 Subjective: f/u for delirium/dementia and deconditioining. Agitation reported overnight but given Ativan and now sleeping. No other events reported. - Objective Vital Signs & Weight: Vital Signs (12 hours) Temp Pulse Resp BP BP Pulse Ox 04/22/19 07:31 98.0 F 101 H 24 H 166/88 H 100 04/22/19 03:41 97.3 F L 102 H 30 H 146/78 H 99 04/22/19 01:14 103 H 186/109 H 04/22/19 00:00 97.7 F 100 22 H 93 L Weight Admit Weight 131 lb 9.6 oz Weight 131 lb 9.6 oz I&O: 04/21/19 04/22/19 04/23/19 06:59 06:59 06:59 Intake Total 2270 Balance 2270 Result Diagrams: 04/19/19 05:26 04/21/19 05:26 Additional Labs: Laboratory Tests 04/18/19 04/18/19 04/18/19 07:32 07:32 10:26 Hgb 9.7 L Neutrophils % 76.5 H Neutrophils % (Manual) Potassium 3.4 L Alkaline Phosphatase 114 H Creatine Kinase 305 H Free T4 Free T3 TSH 3rd Generation 0.0088 L 04/19/19 04/19/19 04/19/19 05:26 05:26 05:26 Hgb Neutrophils % Neutrophils % (Manual) 81 H Potassium Alkaline Phosphatase 111 H Creatine Kinase Free T4 1.03 Free T3 2.64 TSH 3rd Generation 0.0064 L Hospitalist ROS - Medication Medications: Active Medications Generic Name Dose Route Start Last Admin Trade Name Freq PRN Reason Stop Dose Admin Famotidine 20 mg 04/21/19 21:00 04/22/19 07:55 Pepcid SLOW IVP 20 mg BID ALEXIS Administration Hydralazine HCl 10 mg 04/18/19 18:09 04/22/19 01:14 Apresoline SLOW IVP 10 mg Q4H PRN Administration SBP > 180 and HR < 70 Ceftriaxone Sodium 2 gm/ 100 mls @ 200 mls/hr 04/18/19 20:00 04/21/19 20:09 Sodium Chloride IVPB 100 mls Q24HR@2000 ALEXIS Administration Sodium Chloride 1,000 mls @ 75 mls/hr 04/18/19 18:09 04/22/19 01:17 Normal Saline 0.9% IV 1,000 mls .[id number] ALEXIS Administration Lorazepam 1 mg 04/21/19 13:45 04/22/19 07:56 Ativan SLOW IVP 1 mg Q6H ALEXIS Administration Ondansetron HCl 4 mg 04/18/19 18:09 04/19/19 06:41 Zofran IVP 4 mg Q6H PRN Administration Nausea/Vomiting Potassium Chloride 40 meq 04/21/19 15:00 04/22/19 07:58 Klor-Con PO Not Given TID ALEXIS - Exam General - other findings: somnolent, sleeping Eye: PERRL, anicteric sclera ENT: normocephalic atraumatic, no oropharyngeal lesions ENT - other findings: edentulous Neck: supple, symmetric, no JVD, no thyromegaly Heart: RRR, no murmur, no gallops, no rubs, normal peripheral pulses Respiratory: CTAB, no wheezes, no rales, no ronchi Gastrointestinal: soft, non-tender, non-distended, normal bowel sounds Extremities: no cyanosis, no clubbing, no edema Skin: normal turgor Neurological: cranial nerve grossly intact, no new deficit Musculoskeletal: generalized weakness, diffuse muscle atrophy Psychiatric: oriented to person Hosp A/P (1) Acute metabolic encephalopathy Code(s): G93.41 - METABOLIC ENCEPHALOPATHY Status: Acute Plan: Likely multifactorial delirium and dementia component, Ativan for agitation and aggression (2) UTI (urinary tract infection) Status: Acute Plan: Continue Rocephin IV (3) FTT (failure to thrive) in adult Status: Chronic Plan: Dietary supplements, Regular diet, Ensure Enlive (4) Physical deconditioning Code(s): R53.81 - OTHER MALAISE Status: Chronic Plan: Fall risk precautions, PT for mobilization (5) Rhabdomyolysis Code(s): M62.82 - RHABDOMYOLYSIS Status: Acute Plan: Resolving (6) Severe protein-calorie malnutrition Code(s): E43 - UNSPECIFIED SEVERE PROTEIN-CALORIE MALNUTRITION Status: Chronic (7) Dementia Code(s): F03.90 - UNSPECIFIED DEMENTIA WITHOUT BEHAVIORAL DISTURBANCE Status: Chronic Plan: Continue Aricept 5mg daily - Plan continue antibiotics, PT/OT, social professionals Stable currently Saline Lock IVF's Continue Rocephin PT/OT evaluation CM for SNF/NH options Ativan 1mg IV q6h prn agitation KCL 40meq TID AM lab: BMP
[2019-04-22] MEDS ORDERED: Potassium Chloride 40 MEQ in Sodium Chloride 0.9% 250 ML 250 ML IVPB SCH (16:15)
[2019-04-22 19:47] VITALS: BP 158/91; TEMP 97.2
[2019-04-22] MEDS: cefTRIAXone\\ROCEPHIN 2 GM in Sodium Chloride 0.9% 100 ML IVPB SCH (21:11)
--- NOTE | 2019-04-22 21:37 | RAD ---
Chest AP view INDICATION: Altered mental status COMPARISON: April 18, 2019 FINDINGS: Lungs:There is bilateral perihilar airspace opacities. There is more prominent opacity in the right l ower lobe are suspicious for volume loss Cardiac silhouette:There is mild cardiomegaly Pulmonary vasculature:There is moderate pulmonary vascular congestion. Pleural spaces:There are new [id number] right and small left pleural effusion Upper abdomen:Stable surgical clips within the upper abdomen. Osseous structures: No acute osseous abnormality. Additional findings:None. IMPRESSION: Findings suspicious for moderate CHF.
[2019-04-22 22:01] LABS: #Basophils 0.1 thou/uL (0.0-0.2); #Lymphocytes 0.8 thou/uL (1.20-3.40); #Monocytes 0.3 thou/uL (0.11-0.59); #Neutrophils 8.9 thou/uL (1.40-6.50); %Basophils 0.5 % (0.0-1.0); %Eosinophils 0.1 % (0.0-10.0); %Lymphocytes 7.6 % (21.0-51.0); %Monocytes 3.3 % (0.0-10.0); %Neutrophils 88.5 % (42.0-75.0); Anisocytosis SLIGHT = 6-15 cells (100X) (0-5/hpf); Elliptocytes SLIGHT = 2-5 cells (100X) (0-1/hpf); MDiff Complete? YES; Mean Corpuscular Hemoglobin 25.2 pg (27.0-31.0); Mean Corpuscular Volume 83.9 fL (78.0-98.0); Mean Platelet Volume 10.7 fL (7.4-10.4); Platelet Count 377 thou/uL (130-400); RBC Distribution Width 18.1 % (11.5-14.5); Red Blood Cell (RBC) Count 4.37 mill/uL (4.70-6.10); White Blood Cell (WBC) Count 10.1 thou/uL (4.8-10.8)
[2019-04-22 22:14] LABS: ALT (SGPT) 13 U/L (8-55); AST (SGOT) 11 U/L (5-34); Albumin 3.1 g/dL (3.4-4.8); Alkaline Phosphatase 117 U/L (40-110); Anion Gap 13 mmol/L (10-20); BUN (Urea Nitrogen) 9 mg/dL (8.4-25.7); Bilirubin, Total 0.3 mg/dL (0.2-1.2); Calc. Creatinine Clearance 70 mL/min (70-130); Calcium 8.7 mg/dL (7.8-10.44); Carbon Dioxide 26 mmol/L (23-31); Chloride 106 mmol/L (98-107); Estimated GFR-MDRD Greater than 90; Globulin 2.8 g/dL (2.4-3.5); Glucose 172 mg/dL (83-110); Magnesium 1.8 mg/dL (1.6-2.6); Potassium 4.6 mmol/L (3.5-5.1); Protein, Total 5.9 g/dL (5.8-8.1); Sodium 140 mmol/L (136-145)
[2019-04-22] MEDS ORDERED: D5 0.9% NS w/ 20 mEq KCl 1,000 ML IV SCH (22:15)
[2019-04-22] MEDS ORDERED: methylPREDNISolone Sod Succ/PF 125 MG/2 ML VIAL IVP SCH (22:15)
[2019-04-22] MEDS ORDERED: Furosemide 20 MG/2 ML VIAL SLOW IVP SCH (22:15)
[2019-04-22] MEDS ORDERED: Hydrocortisone Sod Succ/PF 100 mg/2 ml Vial IVP SCH (23:30)
[2019-04-22] MEDS ORDERED: Meropenem 1 GM in Sodium Chloride 0.9% 100 ML IVPB SCH (23:59)
[2019-04-22] MEDS ORDERED: MEROPENEM 1 GM/50 ML 1 GM in Premix Bag 1 BAG IVPB SCH (23:59)
--- NOTE | 2019-04-23 14:14 | DIS ---
DATE OF ADMISSION: 04/18/2019 DATE OF DISCHARGE: 04/22/2019 FINAL DIAGNOSES: 1. Acute metabolic encephalopathy, multifactorial. 2. Urinary tract infection, suspected. No dominant organism identified. 3. Failure to thrive. 4. Physical deconditioning, advanced. 5. Rhabdomyolysis, resolved. 6. Severe protein-calorie malnutrition. 7. Dementia, advanced. CONSULTATIONS: None. PERTINENT LABORATORY AND X-RAY FINDINGS: Potassium ranged between 3.0 to 4.6. Lactic acid level 1.0. Magnesium level 1.8. LFTs within normal limits. Serum ammonia level 25. Total CK ranged between 54 to 305. TSH 0.0088. Free T3 of 2.64, free T4 of 1.03. Albumin level ranged between 2.9 to 3.1. CBC showed hemoglobin ranged between 9.7 to 11.0. C difficile antigen and toxin dated 04/20/2019, negative. CT of the brain without contrast dated 04/18/2019, showed no acute intracranial process. Chronic ischemic white matter changes noted. Portable chest x-ray dated 04/18/2019, showed no acute cardiopulmonary process. Pelvic radiographs dated 04/18/2019, showed no acute fracture. Portable chest x-ray dated 2019, showed moderate pulmonary vascular congestion. HOSPITAL COURSE: The patient was admitted on 04/18/2019, after presenting status post fall with altered mental status. The patient also with failure to thrive and [id number] protein-calorie malnutrition in addition to delirium and dementia. The patient underwent extensive evaluation including CT imaging of the brain showing no acute intracranial process. The patient was treated with IV fluids as well as initiated on broad-spectrum antibiotic therapy with Rocephin after concern for potential urinary tract infection. The patient continued to receive supportive management throughout the hospital course including potassium supplementation and serial monitoring of electrolytes. The patient remained deconditioned with altered mentation and delirium throughout the hospital course. The patient was not observed ambulatory during the entire hospital course after evaluation with Physical Therapy. The patient did require a sitter for one-on- one observation due to delirium. The patient continued to clinically decline with increasing somnolence and respiratory distress. The patient received oxygen supplementation, as well as bronchodilator therapy in addition to IV Lasix. The patient declined further despite intervention and pulmonary supportive measures. The patient became pulseless and at that point with a do not attempt resuscitation order placed at the time of admission. Decedent affairs were notified and no autopsy was performed. The patient's son was notified at the time of expiration at 11:33 p.m., 04/22/2019. Job ID: [id number] MTDD
--- NOTE | 2019-05-01 22:35 | PQF ---
ANA REYES CHARLES DO [id number] T4-A- 4405 [id number] CLINICAL DOCUMENTATION CLARIFICATION FORM: POST DISCHARGE Addendum to original discharge summary date: ____ Late entry note date: __ DATE: 05/01/2019 ATTN:STEFANO JAVIER DO Please exercise your independent, professional judgment in responding to the clarification form. Clinical indicators are provided on the bottom of this form for your review Please check appropriate box(s): [ x ] Primary/Essential Hypertension [ ] Emergency [ ] Urgency [ ] Crisis [ ] Other diagnosis [ ] Unable to determine For continuity of documentation, please document condition throughout progress notes and discharge summary. Thank You. CLINICAL INDICATORS - SIGNS / SYMPTOMS / LABS - BP: 188/80H on 04/20, 182/89H on 04/20, 181/90H on 04/21, 186/109H on 04/22- Vital signs report - Essential hypertension-Hospital Progress note, 04/20, Vel Wiggins RISK FACTORS -Hx of hypertension- ED record, 04/18, Lexii Sanz DO TREATMENTS: -Metoprolol.T-MAR (This form is maintained as a part of the permanent medical record) 2014 [employer] All Rights Reserved Andrez [email or web address]
--- NOTE | 2019-05-01 22:54 | PQF ---
ANA REYES CHARLES DO [id number] T4-A- 4405 [id number] CLINICAL DOCUMENTATION CLARIFICATION FORM: POST DISCHARGE Addendum to original discharge summary date: ____ Late entry note date: __ DATE: 05/01/2019 ATTN:STEFANO JAVIER DO Please exercise your independent, professional judgment in responding to the clarification form. Clinical indicators are provided on the bottom of this form for your review Please check appropriate box(s): HEART FAILURE: A. TYPE: [ ] Systolic / HFrEF [ ] Diastolic / HFpEF [ ] Combined Systolic / Diastolic B. ACUITY [ ] Acute [ ] Acute on Chronic [ ] Chronic [ x ] Other diagnosis _Valvular disease [ ] Unable to determine In addition, please specify: Present on Admission (POA): [ ] Yes [ x ] No [ ] Unable to determine For continuity of documentation, please document condition throughout progress notes and discharge summary. Thank You. CLINICAL INDICATORS - SIGNS / SYMPTOMS / LABS - Findings suspicious for moderate CHF- Chest X-ray 04/22, Nichelle Otero MD - Mild cardiomegaly is present- Chest x- ray on 04/18, Nichelle Otero MD - There is moderate pulmonary vascular congestion- Chest X-ray 04/22, Nichelle Lr - There are new small to moderate right and small left pleural effusion-Chest X- ray 04/22, Nichelle Lr - BP: 188/80H on 04/20, 186/109H on 04/22- Vital signs report RISKS: -Hx of Hypertension- ED record, 04/18, Lexii Sanz DO TREATMENTS: - Furosemide.IV- MAY, 04/22 [employer] Manager [employer] (This form is maintained as a part of the permanent medical record) 2014 [employer]. All Rights Reserved Andrez [email or web address]
--- NOTE | 2019-05-01 23:04 | PQF ---
ANA REYES CHARLES DO [id number] T4-A- 4405 [id number] CLINICAL DOCUMENTATION CLARIFICATION FORM: POST DISCHARGE Addendum to original discharge summary date: ____ Late entry note date: __ DATE: 05/01/2019 ATTN:STEFANO JAVIER DO Please exercise your independent, professional judgment in responding to the clarification form. Clinical indicators are provided on the bottom of this form for your review Please check appropriate box(s): [ x ] Acute Respiratory Failure: [ x ] with Hypoxia[ ] with Hypercapnia [ ] Acute On Chronic Respiratory Failure: [ ] with Hypoxia [ ] with Hypercapnia [ ] Acute Respiratory Failure due to: (etiology) [ ] ARDS (Acute Respiratory Distress Syndrome) [ ] Chronic Respiratory Failure only [ ] with Hypoxia [ ] with Hypercapnia [ ] Hypoxia [ ] Other diagnosis [ ] Unable to determine In addition, please specify: Present on Admission (POA): [ ] Yes [ x ] No [ ] Unable to determine For continuity of documentation, please document condition throughout progress notes and discharge summary. Thank You. CLINICAL INDICATORS - SIGNS / SYMPTOMS / LABS - SPO2: 86L, 85L, 90L, 92L, 66L on 04/22- Vital signs report - RR:22H, 30H, 20H, 32H, 34H, 8L on 04/22-Vital signs report RISK FACTORS - Nasal cannula- Vital signs on 04/22 - Venturi Mask- Vital signs on 04/22 TREATMENTS: - DuoNeb- MAY, 04/22 (This form is maintained as a part of the permanent medical record) 2014 [employer] All Rights Reserved Andrez [email or web address]
== END 2019-04-22 23:33 | disposition expired | DRG 689 ==
LOC: ERS 06:51 → ERHOLD 10:41 → T4-A 19:35
PROVIDERS: ADMIT Family Medicine; ATTEND Emergency Medicine
PROC: 0HQ0XZZ Repair Scalp Skin, External Approach (ICD-10-PCS; principal; 2019-04-18)
DX: N39.0 Urinary tract infection, site not specified (principal); G93.41 Metabolic encephalopathy; E43 Unspecified severe protein-calorie malnutrition; J96.01 Acute respiratory failure with hypoxia; M62.82 Rhabdomyolysis; Z68.1 Body mass index [BMI] 19.9 or less, adult; Z66 Do not resuscitate; I10 Essential (primary) hypertension; C61 Malignant neoplasm of prostate; R62.7 Adult failure to thrive; E86.0 Dehydration; E05.90 Thyrotoxicosis, unspecified without thyrotoxic crisis or storm; S01.01XA Laceration without foreign body of scalp, initial encounter; I99.9 Unspecified disorder of circulatory system; R53.81 Other malaise; F03.90 Unspecified dementia, unspecified severity, without behavioral disturbance, psychotic disturbance, mood disturbance, and anxiety; W18.39XA Other fall on same level, initial encounter; Y92.090 Kitchen in other non-institutional residence as the place of occurrence of the external cause; Z88.0 Allergy status to penicillin; Z79.899 Other long term (current) drug therapy
CPT/HCPCS: 12001; 36415; 36416; 70450; 71045; 72170; 80048; 80053; 81003; 81015; 82140; 82550; 83605; 83735; 84439; 84443; 84481; 84484; 85007; 85025; 85027; 87324; 87449; 93005; 94640; J0360; J0696; J1940; J2060; J2405; J2930; J3480; J3490; J7050; J7620; S0028